=== PATIENT | male | born 1940 | race Caucasian/White ===

== ENCOUNTER 2017-09-26 11:15 | Inpatient (IN) | payer OTHER, MEDICARE ==
[2017-09-26] VITALS (7 sets, daily range): BP systolic 126–180; BP diastolic 68–105; PULSE 82–152; RESP 16–20; TEMP 97.8–98.6; O2SAT 95–99
[~2017-09-26] VITALS: Ht 180.3 cm; Wt 92.0 kg
[2017-09-26] MEDS ORDERED: LUBR0.5D2 EACH EYE (11:33)
[2017-09-26] MEDS ORDERED: ATOR40TA16 PO (11:33)
[2017-09-26] MEDS ORDERED: FREETES (11:33)
[2017-09-26] MEDS ORDERED: LANTUS2P (11:33)
[2017-09-26] MEDS ORDERED: METF1000 PO (11:36)
[2017-09-26] MEDS ORDERED: LOSA100T PO (11:36)
[2017-09-26] MEDS ORDERED: XARE20TA PO (11:36)
[2017-09-26] MEDS ORDERED: DILT30TA PO (11:36)
[2017-09-26] MEDS ORDERED: DILTIAZEM HCL 25 MG/5 ML VIAL IV PUSH ONE (11:45)
[2017-09-26] MEDS ORDERED: SODIUM CHLORIDE 0.9% FLUSH 10 ML FLUSH IVF PRN (11:45)
[2017-09-26] MEDS ORDERED: ASPIRIN 81 MG CHEW TAB PO ONE (11:45)
--- NOTE | 2017-09-26 11:52 | PD ---
HPI Chief Complaint: Chest Pain Time Seen by Provider: 11:29 Travel History International Travel<30 days: No Contact w/Intl Traveler<30days: No Traveled to known affect area: No History of Present Illness HPI 76-year-old male with a history of A. fib presents emergency department complaining of chest tightness, rapid heart rate, shortness of breath for approximately 1.5 weeks. States that his symptoms started about a week and a half ago after he was exercising. States that his heart rate was persistently elevated and he has been unable to get this down. Says that his chest tightness is the middle of his chest and does not radiate. States that it feels like a squeezing sensation. States this is mild to moderate. Says that in particular, his heart rate increases significantly with exercise therefore he has reduced his exercise in the last week. Says that he also has had cough congestion type symptoms for approximately 1 week. States compliance of medications which include diltiazem and Xarelto. States he takes 30 mg diltiazem daily. Denies history of congestive heart failure, MIs. Patient does not follow cardiology. States his primary care physician is [facility]. [facility] at [facility]. in addition, patient is complaining about testicular swelling and pain for "several weeks". States the pain is present especially with standing or jumping. States resting decreases his pain. States that he in addition he has had difficulty urinating and says that the urine has been dark. Denies hematuria, penile discharge. States he has had no sexual partners within the last month. States this has never occurred before. Patient is not . He has not followed up with his primary care physician for any of these complaints. PFSH Past Medical History Hx Anticoagulant Therapy: Yes (Xarelto) Atrial Fibrillation: Yes Cardiovascular Problems: Yes (a-fib; htn, hyperlipidemia, ) High Cholesterol: Yes Diabetes: Yes Patient Takes Glucophage: Yes GERD: Yes Hypertension: Yes Influenza Vaccination: No Past Surgical History Prostatectomy: Yes Social History Alcohol Use: No Tobacco Use: No Substance Use: No Allergies-Medications (Allergen,Severity, Reaction): Coded Allergies: No Known Allergies (Unverified , 09/26/17) Reported Meds & Prescriptions Reported Meds & Active Scripts Active Reported Diltiazem (Diltiazem HCl) 30 Mg Tab 30 Mg PO QID Xarelto (Rivaroxaban) 20 Mg Tab 20 Mg PO DAILY Metformin (Metformin HCl) 1,000 Mg Tab 1,000 Mg PO DAILY With a meal Losartan (Losartan Potassium) 100 Mg Tab 100 Mg PO DAILY Lantus Inj (Insulin Glargine) 100 Unit/Ml Inj 25 Freestyle Lite Test Strip (Glucose Blood) 1 Rakel Rakel Lubricant Opth Drops (Carboxymethylcellulose Sodium Opth Drops) 0.5% Drops 1 Drop EACH EYE QID Atorvastatin (Atorvastatin Calcium) 40 Mg Tab 40 Mg PO HS Review of Systems Except as stated in HPI: all other systems reviewed are Neg Physical Exam Narrative GENERAL: Well-nourished in no acute distress, resting comfortably in bed SKIN: Focused skin assessment warm/dry. Mild pedal edema HEAD: Atraumatic. Normocephalic. EYES: Pupils equal and round. No scleral icterus. No injection or drainage. ENT: No nasal bleeding or discharge. Mucous membranes pink and moist. NECK: Trachea midline. No JVD. No lymphadenopathy CARDIOVASCULAR: Tachycardic rate 120-140BPM, irregular. No murmur appreciated. RESPIRATORY: No accessory muscle use. Clear to auscultation. Breath sounds equal bilaterally. GASTROINTESTINAL: Abdomen soft, non-tender, nondistended. MUSCULOSKELETAL: No obvious deformities. No clubbing. No cyanosis. No edema. No tenderness palpation of the chest wall NEUROLOGICAL: Awake and alert. No obvious cranial nerve deficits. Motor grossly within normal limits. Normal speech. PSYCHIATRIC: Appropriate mood and affect; insight and judgment normal. Data Data Last Documented VS Vital Signs Date Time Temp Pulse Resp B/P (MAP) Pulse Ox O2 Delivery O2 Flow Rate FiO2 09/26/17 12:51 91 16 95 Room Air 09/26/17 11:20 98.6 Orders Orders Electrocardiogram (09/26/17 11:39) B-Type Natriuretic Peptide (09/26/17 11:39) Ckmb (Isoenzyme) Profile (09/26/17 11:39) Complete Blood Count With Diff (09/26/17 11:39) Comprehensive Metabolic Panel (09/26/17 11:39) Magnesium (Mg) (09/26/17 11:39) Prothrombin Time / Inr (Pt) (09/26/17 11:39) Act Partial Throm Time (Ptt) (09/26/17 11:39) Troponin I (09/26/17 11:39) Chest, Single Ap (09/26/17 11:39) Ecg Monitoring (09/26/17 11:39) Bilateral Bp Monitoring (09/26/17 11:39) Iv Access Insert/Monitor (09/26/17 11:39) Oximetry (09/26/17 11:39) Aspirin Chew (Aspirin Chew) (09/26/17 11:45) Sodium Chloride 0.9% Flush (Ns Flush) (09/26/17 11:45) Us Testicles W Doppler (09/26/17 ) Diltiazem Inj (Cardizem Inj) (09/26/17 11:45) Furosemide Inj (Lasix Inj) (09/26/17 13:00) Admit Order (Ed Use Only) (09/26/17 13:22) Labs Laboratory Tests Test 09/26/17 12:00 White Blood Count 6.7 TH/MM3 Red Blood Count 4.67 MIL/MM3 Hemoglobin 13.9 GM/DL Hematocrit 41.4 % Mean Corpuscular Volume 88.7 FL Mean Corpuscular Hemoglobin 29.8 PG Mean Corpuscular Hemoglobin Concent 33.5 % Red Cell Distribution Width 14.6 % Platelet Count 148 TH/MM3 Mean Platelet Volume 8.9 FL Neutrophils (%) (Auto) 77.9 % Lymphocytes (%) (Auto) 14.9 % Monocytes (%) (Auto) 6.4 % Eosinophils (%) (Auto) 0.5 % Basophils (%) (Auto) 0.3 % Neutrophils # (Auto) 5.2 TH/MM3 Lymphocytes # (Auto) 1.0 TH/MM3 Monocytes # (Auto) 0.4 TH/MM3 Eosinophils # (Auto) 0.0 TH/MM3 Basophils # (Auto) 0.0 TH/MM3 CBC Comment DIFF FINAL Differential Comment Prothrombin Time 13.7 SEC Prothromb Time International Ratio 1.4 RATIO Activated Partial Thromboplast Time 32.6 SEC Blood Urea Nitrogen 18 MG/DL Creatinine 1.19 MG/DL Random Glucose 237 MG/DL Total Protein 7.1 GM/DL Albumin 3.7 GM/DL Calcium Level 8.5 MG/DL Magnesium Level 2.1 MG/DL Alkaline Phosphatase 179 U/L Aspartate Amino Transf (AST/SGOT) 22 U/L Alanine Aminotransferase (ALT/SGPT) 22 U/L Total Bilirubin 1.1 MG/DL Sodium Level 139 MEQ/L Potassium Level 4.6 MEQ/L Chloride Level 105 MEQ/L Carbon Dioxide Level 24.6 MEQ/L Anion Gap 9 MEQ/L Estimat Glomerular Filtration Rate 59 ML/MIN Hemoglobin A1c 7.2 % Total Creatine Kinase 80 U/L Troponin I LESS THAN 0.02 NG/ML B-Type Natriuretic Peptide 229 PG/ML Thyroid Stimulating Hormone 3rd Gen 1.340 uIU/ML MDM Medical Decision Making Medical Screen Exam Complete: Yes Emergency Medical Condition: Yes Differential Diagnosis A. fib with RVR, testicular torsion, testicular hydrocele, epididymitis, STEMI, NSTEMI, congestive heart failure Narrative Course 76-year-old male with a history of A. fib presents emergency department complaining of chest tightness, rapid heart rate, shortness of breath for approximately 1.5 weeks. States that his symptoms started about a week and a half ago after he was exercising. States that his heart rate was persistently elevated and he has been unable to get this down. Says that his chest tightness is the middle of his chest and does not radiate. States that it feels like a squeezing sensation. States this is mild to moderate. Says that in particular, his heart rate increases significantly with exercise therefore he has reduced his exercise in the last week. Says that he also has had cough congestion type symptoms for approximately 1 week. States compliance of medications which include diltiazem and Xarelto. States he takes 30 mg diltiazem daily. Denies history of congestive heart failure, MIs. Patient does not follow cardiology. States his primary care physician is Dr. [facility] at [facility]. in addition, patient is complaining about testicular swelling and pain for "several weeks". States the pain is present especially with standing or jumping. States resting decreases his pain. States that he in addition he has had difficulty urinating and says that the urine has been dark. Denies hematuria, penile discharge. States he has had no sexual partners within the last month. States this has never occurred before. Patient is not . He has not followed up with his primary care physician for any of these complaints. 81 mg aspirin administered as patient did not take aspirin this morning. Heart rate is fluctuating from 118 to 145BPM. Blood pressure stable. EKG demonstrates atrial fibrillation with RVR with a rate of 124. BASA administered. Diltiazem 22 mg administered. HR stable at 93. Chest x-ray demonstrates cardiomegaly, congestion. Lasix 20mg administered for likely CHF Testicular US demonstrate moderate sized hydrocele with good blood flow. Cardiac enzymes negative. Patient will be admitted with A. fib with RVR, CHF. Rule out ACS. Patient also has a testicular hydrocele and hyperglycemia without a history of diabetes. Patient states compliance medications however, his dose of diltiazem is likely not adequate for his condition. I discussed these findings with the patient and he was reluctant to stay. Patient was convinced and I advised him to stay because of concerning symptoms of congestive heart failure. I spoke with the patient regarding the hyperglycemia as well and he says that he has never been diagnosed and did not know anything about his high blood sugar. As previously noted, pt has had trouble urinating for the last several weeks but denies complete obstruction. No history of BPH or other prostate problems. Consider Pritchard placement. Pt will be admitted to Dr. Chaidez, Dr. Peterson attending. Diagnosis Primary Impression: Atrial fibrillation with RVR Additional Impressions: CHF (congestive heart failure) Qualified Codes: I50.9 - Heart failure, unspecified Hydrocele Qualified Codes: N43.2 - Other hydrocele Hyperglycemia Admitting Information Admitting Physician Requests: Admit Condition: Stable Dora Valverde Sep 26, 2017 11:52
--- NOTE | 2017-09-26 12:02 | PD ---
Physical Exam Narrative I, Dr. Mills, have reviewed the advance practice practitioner's documentation and am in agreement, met with the patient face to face, made the diagnosis, and the medical decision making was done by me. *My assessment and Findings: Patient is a 76 year old male who comes in complaining of rapid heart rate and chest pain. Exam shows lower lobe crackles in the lungs. Heart is rapid in rate. Data Data Last Documented VS Vital Signs Date Time Temp Pulse Resp B/P (MAP) Pulse Ox O2 Delivery O2 Flow Rate FiO2 09/26/17 12:51 91 16 95 Room Air 09/26/17 11:20 98.6 Orders Orders Electrocardiogram (09/26/17 11:39) B-Type Natriuretic Peptide (09/26/17 11:39) Ckmb (Isoenzyme) Profile (09/26/17 11:39) Complete Blood Count With Diff (09/26/17 11:39) Comprehensive Metabolic Panel (09/26/17 11:39) Magnesium (Mg) (09/26/17 11:39) Prothrombin Time / Inr (Pt) (09/26/17 11:39) Act Partial Throm Time (Ptt) (09/26/17 11:39) Troponin I (09/26/17 11:39) Chest, Single Ap (09/26/17 11:39) Ecg Monitoring (09/26/17 11:39) Bilateral Bp Monitoring (09/26/17 11:39) Iv Access Insert/Monitor (09/26/17 11:39) Oximetry (09/26/17 11:39) Aspirin Chew (Aspirin Chew) (09/26/17 11:45) Sodium Chloride 0.9% Flush (Ns Flush) (09/26/17 11:45) Us Testicles W Doppler (09/26/17 ) Diltiazem Inj (Cardizem Inj) (09/26/17 11:45) Furosemide Inj (Lasix Inj) (09/26/17 13:00) Admit Order (Ed Use Only) (09/26/17 13:22) Labs Laboratory Tests Test 09/26/17 12:00 White Blood Count 6.7 TH/MM3 Red Blood Count 4.67 MIL/MM3 Hemoglobin 13.9 GM/DL Hematocrit 41.4 % Mean Corpuscular Volume 88.7 FL Mean Corpuscular Hemoglobin 29.8 PG Mean Corpuscular Hemoglobin Concent 33.5 % Red Cell Distribution Width 14.6 % Platelet Count 148 TH/MM3 Mean Platelet Volume 8.9 FL Neutrophils (%) (Auto) 77.9 % Lymphocytes (%) (Auto) 14.9 % Monocytes (%) (Auto) 6.4 % Eosinophils (%) (Auto) 0.5 % Basophils (%) (Auto) 0.3 % Neutrophils # (Auto) 5.2 TH/MM3 Lymphocytes # (Auto) 1.0 TH/MM3 Monocytes # (Auto) 0.4 TH/MM3 Eosinophils # (Auto) 0.0 TH/MM3 Basophils # (Auto) 0.0 TH/MM3 CBC Comment DIFF FINAL Differential Comment Prothrombin Time 13.7 SEC Prothromb Time International Ratio 1.4 RATIO Activated Partial Thromboplast Time 32.6 SEC Blood Urea Nitrogen 18 MG/DL Creatinine 1.19 MG/DL Random Glucose 237 MG/DL Total Protein 7.1 GM/DL Albumin 3.7 GM/DL Calcium Level 8.5 MG/DL Magnesium Level 2.1 MG/DL Alkaline Phosphatase 179 U/L Aspartate Amino Transf (AST/SGOT) 22 U/L Alanine Aminotransferase (ALT/SGPT) 22 U/L Total Bilirubin 1.1 MG/DL Sodium Level 139 MEQ/L Potassium Level 4.6 MEQ/L Chloride Level 105 MEQ/L Carbon Dioxide Level 24.6 MEQ/L Anion Gap 9 MEQ/L Estimat Glomerular Filtration Rate 59 ML/MIN Hemoglobin A1c 7.2 % Total Creatine Kinase 80 U/L Troponin I LESS THAN 0.02 NG/ML B-Type Natriuretic Peptide 229 PG/ML Thyroid Stimulating Hormone 3rd Gen 1.340 uIU/ML MDM Supervised Visit with [facility]: Yes Narrative Course Patient connected to the youth nutritional monitor. Given a dose of Cardizem with control of his heart rate. Given a dose of lasix. Will be admitted for further management. Diagnosis Primary Impression: Atrial fibrillation with RVR Admitting Information Admitting Physician Requests: Admit Scripts Diltiazem CD 24 HR (Diltiazem CD 24 HR) 240 Mg Caper 240 MG PO DAILY, #30 CAP 1 Refill Prov: Melody Og MD R1 09/29/17 Levofloxacin (Levaquin) 500 Mg Tablet 500 MG PO DAILY, #4 TAB 0 Refills Prov: Melody Og MD R1 09/29/17 Condition: Stable Kiah Mills MD Sep 26, 2017 12:02
[2017-09-26 12:17] LABS: AUTOMATED NEUTROPHIL # 5.2 TH/MM3 (1.8-7.7); BASOPHIL % 0.3 % (0.0-2.0); EOSINOPHIL % 0.5 % (0.0-4.0); HEMATOCRIT 41.4 % (39.0-51.0); HEMOGLOBIN 13.9 GM/DL (13.0-17.0); LYMPH % 14.9 % (9.0-44.0); MEAN CELL VOLUME 88.7 FL (80.0-100.0); MEAN CORPUSCULAR HEMOGLOBIN 29.8 PG (27.0-34.0); MEAN CORPUSCULAR HGB CONC 33.5 % (32.0-36.0); MEAN PLATELET VOLUME 8.9 FL (7.0-11.0); MONO % 6.4 % (0.0-8.0); MONOCYTE # 0.4 TH/MM3 (0-0.9); NEUT % 77.9 % (16.0-70.0); PLATELET COUNT 148 TH/MM3 (150-450); RED BLOOD COUNT 4.67 MIL/MM3 (4.50-5.90); RED CELL DISTRIBUTION WIDTH 14.6 % (11.6-17.2); WHITE BLOOD COUNT 6.7 TH/MM3 (4.0-11.0)
[2017-09-26 12:21] LABS: INTERNATIONAL NORMALIZED RATIO 1.4 RATIO; PROTHROMBIN TIME - PATIENT 13.7 SEC (9.8-11.6)
[2017-09-26 12:39] LABS: ALBUMIN 3.7 GM/DL (3.4-5.0); ALT (GPT) 22 U/L (12-78); AST (GOT) 22 U/L (15-37); BICARBONATE 24.6 MEQ/L (21.0-32.0); BLOOD UREA NITROGEN 18 MG/DL (7-18); CALCIUM 8.5 MG/DL (8.5-10.1); CHLORIDE 105 MEQ/L (98-107); CREATININE 1.19 MG/DL (0.60-1.30); GLOMERULAR FILTRATION RATE 59 ML/MIN (>89); GLUCOSE,RANDOM 237 MG/DL (74-106); MAGNESIUM 2.1 MG/DL (1.5-2.5); SODIUM (NA) 139 MEQ/L (136-145)
--- NOTE | 2017-09-26 12:40 | RADRPT ---
EXAM DATE/TIME: 09/26/2017 12:04 [facility] COMPARISON: No previous studies available for comparison. INDICATIONS : Swelling. MEDICAL HISTORY : Afib. Hypertension. Diabetic. SURGICAL HISTORY : Prostatectomy. ENCOUNTER: Initial ACUITY: 1 week PAIN SCORE: 2/10 LOCATION: Bilateral testicle. MEASUREMENTS: RIGHT TESTICLE: 4.7 x 2.9 x 2.8cm LEFT TESTICLE: 4.1 x 2.8 x2 .2cm FINDINGS: RIGHT TESTICLE: Homogeneous echotexture without intra or extratesticular mass. Blood flow is symmetric and within no rmal limits. There is a moderate hydrocele. No varicocele is seen. Epididymis is within normal limi ts. LEFT TESTICLE: Homogeneous echotexture without intra or extratesticular mass. Blood flow is symmetric and within no rmal limits. No hydrocele or varicocele. Epididymis is within normal limits. SCROTUM: Within normal limits. CONCLUSION: Moderate right hydrocele. The testicles appear normal. Jaime Hugo MD on September 26, 2017 at 12:36 Board Certified Radiologist. This report was verified electronically.
[2017-09-26 12:43] LABS: ALKALINE PHOSPHATASE 179 U/L (45-117); TOTAL BILIRUBIN ADULT 1.1 MG/DL (0.2-1.0); TOTAL PROTEIN 7.1 GM/DL (6.4-8.2); TROPONIN I LESS THAN 0.02 NG/ML (0.02-0.05)
[2017-09-26] MEDS ORDERED: FUROSEMIDE 20 MG/2 ML VIAL IV PUSH ONE (13:00)
--- NOTE | 2017-09-26 13:29 | RADRPT ---
EXAM DATE/TIME: 09/26/2017 12:28 [facility] COMPARISON: No previous studies available for comparison. INDICATIONS : Short of breath, chest pain and rapid heart rate. MEDICAL HISTORY : Afib. Hypertension. Diabetic. SURGICAL HISTORY : Prostatectomy. ENCOUNTER: Initial ACUITY: 1 day PAIN SCORE: 8/10 LOCATION: Left chest FINDINGS: A single AP portable erect view of the chest was obtained and demonstrates abnormal opacity at the ri ght lung base with blunting of the costophrenic angle. The left lung is clear. The heart size is mild ly prominent there is hazy opacity at the right lung base and perihilar region. The bony thorax is in tact. There are multiple overlying electrocardiogram leads. CONCLUSION: Abnormal opacity in the right lung base with blunting of the costophrenic angle most consistent with a moderate effusion. There is hazy opacity at the right lung base which may be compre ssive or could represent pneumonia. Timo Munguia MD on September 26, 2017 at 13:25 Board Certified Radiologist. This report was verified electronically.
--- NOTE | 2017-09-26 15:03 | HHI.HP ---
[facility] Service Family Medicine Primary Care Physician [facility] Admission Diagnosis AFib with RVR, CHF, hyperglycemia Diagnoses: International Travel<30 Days: No Contact w/Intl Traveler<30days: No Known Affected Area: No History of Present Illness 76 yr old M w/ PMHx of Afib, DM, and hx of prostate cancer presents with chest pain and right scrotal swelling. Patient states that he has had 1 1/2 week hx of SOB on exertion and fast heart rate. He has been exercising by running up a hill near his home. About half way up the hill, patient develops SOB and gets dizzy. He reports that even walking to the mailbox, patient develops SOB. This morning around 7am, he reports palpitations and left-sided, constant, 7/10, chest tightness lasting a couple of hours. His brother decided to bring him to the ED. Patient reports feeling better after receiving IV Diltazem. He reports that he was diagnosed with Afib about 1 year ago. He has been on Diltazem 30 mg PO QID and Xarelto. He reports being compliant with his medications. He does not follow with a cardiologists. His PCP is Dr. Carter from the [place]. Patient also complains of right testicular swelling that started about 2 weeks ago. He noticed his swollen, enlarged, right testicle when he was taking a shower. He also complains of problems with urination. It is hard for him to start a stream and reports that his stream is slow. He has no morning erections. He endorses mild urinary retention and foul-smelling urine. He denies trauma, fevers, and hx of STDs. He is currently not sexually active. He reports hx of prostate cancer and prostate surgery in 1992. (Melody Og MD R1) Review of Systems Constitutional: DENIES: Fever, Weight loss, Night Sweats Ears, nose, mouth, throat: COMPLAINS OF: Running Nose, DENIES: Hearing loss, Throat pain Respiratory: COMPLAINS OF: Shortness of breath, DENIES: Cough, Sputum production Cardiovascular: COMPLAINS OF: Chest pain, Palpitations, Dyspnea on Exertion, DENIES: Syncope Gastrointestinal: COMPLAINS OF: Abdominal pain, DENIES: Diarrhea, Nausea, Vomiting Genitourinary: COMPLAINS OF: Testicular Pain, Testicular Swelling, DENIES: Hematuria Musculoskeletal: COMPLAINS OF: Joint pain (arithritis) Neurologic: DENIES: Headache (Melody Og MD R1) Past Family Social History Past Medical History Afib on xarelto, 1.5 year ago Prostate cancer DMT2 Left eye retinal issue Past Surgical History Prostate resection 1992, no radiation, no chemotherapy (Melody Og MD R1) Allergies: Coded Allergies: No Known Allergies (Unverified , 09/26/17) Family History DM Mother 92, old age Social History Live alone in [facility], retired quit smoking 30 years ago, smoked for 5 years 1.5ppd Drinks occasionally Denies illicit drug use (Melody Og MD R1) Physical Exam Vital Signs Vital Signs Date Time Temp Pulse Resp B/P (MAP) Pulse Ox O2 Delivery O2 Flow Rate FiO2 09/26/17 12:51 91 16 95 Room Air 09/26/17 12:21 93 17 143/98 (113) 95 Room Air 09/26/17 11:49 154/104 (121) 09/26/17 11:49 95 Room Air 09/26/17 11:20 98.6 152 20 180/105 (130) 96 Room Air Physical Exam GENERAL: pleasant, well-nourished elderly M, sitting up in bed, in NAD SKIN: No rashes, ecchymoses or lesions. Cool and dry. HEAD: Atraumatic. Normocephalic. EYES: Pupils equal round and reactive.. No scleral icterus. No injection or drainage. ENT: Nose without bleeding, purulent drainage or septal hematoma. Throat without erythema, tonsillar hypertrophy or exudate. Uvula midline. Airway patent. NECK: Trachea midline. No JVD or lymphadenopathy. Supple, nontender, no meningeal signs. CARDIOVASCULAR: Irregular rate and rhythm, no m/r/g RESPIRATORY: Clear to auscultation. Breath sounds equal bilaterally. No wheezes , rales, or rhonchi. GASTROINTESTINAL: Abdomen soft, non-tender, nondistended. No hepato-splenomegaly , or palpable masses. No guarding. MUSCULOSKELETAL: Extremities without clubbing, cyanosis, or edema. No joint tenderness, effusion, or edema noted. No calf tenderness. Negative Homans sign bilaterally. : moderately swollen right testicle,erythematous, no inguinal lymph nodes palpated NEUROLOGICAL: Awake, alert, oriented x3 Laboratory Laboratory Tests Test 09/26/17 12:00 White Blood Count 6.7 Red Blood Count 4.67 Hemoglobin 13.9 Hematocrit 41.4 Mean Corpuscular Volume 88.7 Mean Corpuscular Hemoglobin 29.8 Mean Corpuscular Hemoglobin Concent 33.5 Red Cell Distribution Width 14.6 Platelet Count 148 Mean Platelet Volume 8.9 Neutrophils (%) (Auto) 77.9 Lymphocytes (%) (Auto) 14.9 Monocytes (%) (Auto) 6.4 Eosinophils (%) (Auto) 0.5 Basophils (%) (Auto) 0.3 Neutrophils # (Auto) 5.2 Lymphocytes # (Auto) 1.0 Monocytes # (Auto) 0.4 Eosinophils # (Auto) 0.0 Basophils # (Auto) 0.0 CBC Comment DIFF FINAL Differential Comment Prothrombin Time 13.7 Prothromb Time International Ratio 1.4 Activated Partial Thromboplast Time 32.6 Blood Urea Nitrogen 18 Creatinine 1.19 Random Glucose 237 Total Protein 7.1 Albumin 3.7 Calcium Level 8.5 Magnesium Level 2.1 Alkaline Phosphatase 179 Aspartate Amino Transf (AST/SGOT) 22 Alanine Aminotransferase (ALT/SGPT) 22 Total Bilirubin 1.1 Sodium Level 139 Potassium Level 4.6 Chloride Level 105 Carbon Dioxide Level 24.6 Anion Gap 9 Estimat Glomerular Filtration Rate 59 Total Creatine Kinase 80 Troponin I LESS THAN 0.02 (Melody Og MD R1) Result Diagram: 09/26/17 1200 09/26/17 1200 Caprini VTE Risk Assessment Caprini VTE Risk Assessment: Mod/High Risk (score >= 2) Caprini Risk Assessment Model Point Value = 1 Point Value = 2 Point Value = 3 Point Value = 5 Age 41-60 Minor surgery BMI > 25 kg/m2 Swollen legs Varicose veins or History of unexplained or recurrent spontaneous Oral contraceptives or hormone replacement Sepsis (< 1 month) Serious lung disease, including pneumonia (< 1 month) Abnormal pulmonary function Acute myocardial infarction Congestive heart failure (< 1 month) History of inflammatory bowel disease Medical patient at bed rest Age 61-74 Arthroscopic surgery Major open surgery (> 45 min) Laparoscopic surgery (> 45 min) Malignancy Confined to bed (> 72 hours) Immobilizing plaster cast Central venous access Age >= 75 History of VTE Family history of VTE Factor V Leiden Prothrombin [id number] Lupus anticoagulant Anticardiolipin antibodies Elevated serum homocysteine Heparin-induced thrombocytopenia Other congenital or acquired thrombophilia Stroke (< 1 month) Elective arthroplasty Hip, pelvis, or leg fracture Acute spinal cord injury (< 1 month) Prophylaxis Regimen Total Risk Factor Score Risk Level Prophylaxis Regimen 0-1 Low Early ambulation 2 Moderate Order ONE of the following: *Sequential Compression Device (SCD) *Heparin 5000 units SQ BID 3-4 Higher Order ONE of the following medications: *Heparin 5000 units SQ TID *Enoxaparin/Lovenox 40 mg SQ daily (WT < 150 kg, CrCl > 30 mL/min) *Enoxaparin/Lovenox 30 mg SQ daily (WT < 150 kg, CrCl > 10-29 mL/min) *Enoxaparin/Lovenox 30 mg SQ BID (WT < 150 kg, CrCl > 30 mL/min) AND/OR *Sequential Compression Device (SCD) 5 or more Highest Order ONE of the following medications: *Heparin 5000 units SQ TID (Preferred with Epidurals) *Enoxaparin/Lovenox 40 mg SQ daily (WT < 150 kg, CrCl > 30 mL/min) *Enoxaparin/Lovenox 30 mg SQ daily (WT < 150 kg, CrCl > 10-29 mL/min) *Enoxaparin/Lovenox 30 mg SQ BID (WT < 150 kg, CrCl > 30 mL/min) AND *Sequential Compression Device (SCD) (Melody Og MD R1) Assessment and Plan Assessment and Plan 76 yr old with Afib, DM, HTN, and hx of prostate cancer, admitted for afib w/ RVR and right-sided hydrocele. Code Status Full code Discussed Condition With Dr. Chaidez (Melody Og MD R1) Attending Attestation THIS CASE WAS DISCUSSED WITH THE RESIDENT PHYSICIANS. I HAVE REVIEWED THE RECORD AND AGREE WITH THE ABOVE NOTE AND PLAN OF CARE WAS DISCUSSED. I HAVE AUTHORIZED THE ORDER FOR ADMISSION TO AN IN-PATIENT STATUS. (Otto Peterson MD) Problem List: (1) Atrial fibrillation with RVR ICD Codes: I48.91 - Unspecified atrial fibrillation Status: Acute Plan: Patient diagnosed with Afib 1 year ago on Xarelto and Diltiazem EKG revealed Afib with RVR, HR 124 Rate- controlled to 90s on IV diltiazem 22mg IV push Increase Diltiazem to 60mg PO qid Placed on cardiac telemetry and monitoring Initial troponin less than 0.02 Trend troponin and EKG TSH pending Echo 2D w/ doppler pending Placed on Lovenox 90mg SQ q12hr (2) Hydrocele ICD Codes: N43.3 - Hydrocele, unspecified Status: Acute Plan: Hx of prostate cancer, resection in 1992, no hx of radiation of chemotherapy Scrotum US demonstrates moderate right hydrocele CT abd/ pelv w/ IV contrast ordered GC and chlamydia PCR pending (3) CHF (congestive heart failure) ICD Codes: I50.9 - Heart failure, unspecified Status: Acute Plan: BNP elevated at 229 Echo 2D with doppler pending (4) HTN (hypertension) ICD Codes: I10 - Essential (primary) hypertension Plan: Diltiazem 60mg PO QID Losartan 100mg PO daily clonidine 0.1mg PO q8h PRN SBP >180, DBP >110 (5) Elevated alkaline phosphatase level ICD Codes: R74.8 - Abnormal levels of other serum enzymes Plan: Alk phos elevated at 179 and total bilirubin elevated at 1.1 due to possible biliary obstruction Lipase pending CT abd/pelvis pending (6) Diabetes ICD Codes: E11.9 - Type 2 diabetes mellitus without complications Plan: Held home meds Alc pending Low dose Novolog SS (7) Nutrition, metabolism, and development symptoms ICD Codes: R63.8 - Other symptoms and signs concerning food and fluid intake Plan: Diet: Heart Healthy Fluids: not indicated at this time Electrolytes: monitor and replace as needed vitals q4h, monitor I &Os, on telemetry (Melody Og MD R1) Problem Qualifiers (1) Hydrocele: Qualified Codes: N43.2 - Other hydrocele (2) CHF (congestive heart failure): Qualified Codes: I50.9 - Heart failure, unspecified Melody Og MD R1 Sep 26, 2017 15:03 Otto Peterson MD Sep 26, 2017 21:12
[2017-09-26] MEDS ORDERED: SODIUM CHLORIDE 0.9% FLUSH 10 ML FLUSH IV FLUSH PRN (15:45)
[2017-09-26] MEDS ORDERED: ACETAMINOPHEN 325 MG TAB PO PRN (15:45)
[2017-09-26] MEDS ORDERED: NALOXONE HCL 0.4 MG/ML AMP IV PUSH PRN (15:45)
[2017-09-26] MEDS ORDERED: ONDANSETRON HCL 4 MG/2 ML VIAL IVP PRN (15:45)
[2017-09-26] MEDS ORDERED: DEXTROSE 50% IN WATER 50 ML VIAL(D50) IV PUSH PRN (15:45)
[2017-09-26] MEDS ORDERED: GLUCAGON 1 MG/ML VIAL OTHER PRN (15:45)
[2017-09-26] MEDS ORDERED: cloNIDine HCL 0.1 MG TAB PO PRN (16:00)
[2017-09-26 16:43] LABS: BILIRUBIN, URINE NEG (NEG); BLOOD, URINE NEG (NEG); GLUCOSE,URINE NEG (NEG); KETONE, URINE NEG (NEG); NITRITE,URINE NEG (NEG); PH, URINE 6.5 (5.0-8.5); URINE COLOR LIGHT-YELLOW (YELLW/STRAW); URINE LEUKOCYTE ESTERASE NEG (NEG)
[2017-09-26] MEDS: CARBOXYMETHYLCELL SOD 0.5% OPTH SOLN 15 ML BTL EACH EYE SCH ×2 (18:02→22:23)
[2017-09-26] MEDS: DILTIAZEM HCL 60 MG TAB PO SCH ×2 (18:03→22:22)
[2017-09-26] MEDS: LOSARTAN 50 MG TAB PO SCH (18:03)
[2017-09-26] MEDS: ENOXAPARIN SODIUM 100 MG/ML SYRINGE SQ SCH (18:03)
[2017-09-26] MEDS: INSULIN ASPART SUPPLEMENTAL SCALE SQ SCH ×2 (18:07→22:24)
[2017-09-26 18:21] LABS: HEMOGLOBIN A1C 7.2 % (4.3-6.0)
[2017-09-26 20:32] LABS: TROPONIN I LESS THAN 0.02 NG/ML (0.02-0.05)
[2017-09-26] MEDS: DOCUSATE SODIUM 50 MG/SENNA 8.6 MG TAB PO SCH (21:00)
[2017-09-26] MEDS ORDERED: IOHEXOL 350 MG/ML 10 ML VIAL (for RAD DIAG) IVCONTRAST ONE (21:12)
--- NOTE | 2017-09-26 21:12 | HHI.HP ---
[facility] Service Family Medicine Primary Care Physician [facility] Admission Diagnosis AFib with RVR, CHF, hyperglycemia Diagnoses: (1) Atrial fibrillation with RVR (2) Hydrocele (3) CHF (congestive heart failure) (4) HTN (hypertension) (5) Elevated alkaline phosphatase level (6) Diabetes (7) Nutrition, metabolism, and development symptoms International Travel<30 Days: No Contact w/Intl Traveler<30days: No Known Affected Area: No History of Present Illness 76 yo M presenting to the ED with chest pain and palpitations. He has a history of A.fib and is on diltiazem for rate control and xarelto - however over the last 10 days, he has had progressive shortness of breath and sensation of his heart racing. This is associated with some chest discomfort and dizziness with minimal exertion. In the ED, he was found to be in A.fib with RVR and was given a dose of diltiazem IV and his chest discomfort and palpitations have resolved. He also complains of right scrotal swelling and testicular discomfort for 2 weeks. He states that the swelling was progressive and spontaneous, denies trauma or injury. Denies hematuria or dysuria. Denies lower abdominal pain. He endorses mild urinary retention and difficulty starting a stream. He does have a h/o prostate cancer s/p prostatectomy without radiation or chemotherapy in 1992 Past Family Social History Past Medical History Afib on xarelto, 1.5 year ago Prostate cancer DMT2 Left eye retinal issue Past Surgical History Prostate resection 1992, no radiation, no chemotherapy Allergies: Coded Allergies: No Known Allergies (Unverified , 09/26/17) Family History DM Mother 92, old age Social History Live alone in [facility], retired quit smoking 30 years ago, smoked for 5 years 1.5ppd Drinks occasionally Denies illicit drug use Physical Exam Vital Signs Vital Signs Date Time Temp Pulse Resp B/P (MAP) Pulse Ox O2 Delivery O2 Flow Rate FiO2 09/26/17 17:15 98.0 101 18 126/68 (87) 99 09/26/17 15:44 93 16 147/97 (114) 98 Room Air 09/26/17 12:51 91 16 95 Room Air 09/26/17 12:21 93 17 143/98 (113) 95 Room Air 09/26/17 11:49 154/104 (121) 09/26/17 11:49 95 Room Air 09/26/17 11:20 98.6 152 20 180/105 (130) 96 Room Air Physical Exam GENERAL: pleasant, well-nourished elderly M, sitting up in bed, in NAD SKIN: No rashes, ecchymoses or lesions. Cool and dry. HEAD: Atraumatic. Normocephalic. EYES: Pupils equal round and reactive.. No scleral icterus. No injection or drainage. ENT: Nose without bleeding, purulent drainage or septal hematoma. Throat without erythema, tonsillar hypertrophy or exudate. Uvula midline. Airway patent. NECK: Trachea midline. No JVD or lymphadenopathy. Supple, nontender, no meningeal signs. CARDIOVASCULAR: Irregular rate and rhythm, no m/r/g RESPIRATORY: Clear to auscultation. Breath sounds equal bilaterally. No wheezes , rales, or rhonchi. GASTROINTESTINAL: Abdomen soft, non-tender, nondistended. No hepato-splenomegaly , or palpable masses. No guarding. MUSCULOSKELETAL: Extremities without clubbing, cyanosis, or edema. No joint tenderness, effusion, or edema noted. No calf tenderness. Negative Homans sign bilaterally. : moderately swollen right testicle,erythematous, no inguinal lymph nodes palpated NEUROLOGICAL: Awake, alert, oriented x3 Laboratory Laboratory Tests Test 09/26/17 12:00 09/26/17 16:00 09/26/17 19:05 White Blood Count 6.7 Red Blood Count 4.67 Hemoglobin 13.9 Hematocrit 41.4 Mean Corpuscular Volume 88.7 Mean Corpuscular Hemoglobin 29.8 Mean Corpuscular Hemoglobin Concent 33.5 Red Cell Distribution Width 14.6 Platelet Count 148 Mean Platelet Volume 8.9 Neutrophils (%) (Auto) 77.9 Lymphocytes (%) (Auto) 14.9 Monocytes (%) (Auto) 6.4 Eosinophils (%) (Auto) 0.5 Basophils (%) (Auto) 0.3 Neutrophils # (Auto) 5.2 Lymphocytes # (Auto) 1.0 Monocytes # (Auto) 0.4 Eosinophils # (Auto) 0.0 Basophils # (Auto) 0.0 CBC Comment DIFF FINAL Differential Comment Prothrombin Time 13.7 Prothromb Time International Ratio 1.4 Activated Partial Thromboplast Time 32.6 Blood Urea Nitrogen 18 Creatinine 1.19 Random Glucose 237 Total Protein 7.1 Albumin 3.7 Calcium Level 8.5 Magnesium Level 2.1 Alkaline Phosphatase 179 Aspartate Amino Transf (AST/SGOT) 22 Alanine Aminotransferase (ALT/SGPT) 22 Total Bilirubin 1.1 Sodium Level 139 Potassium Level 4.6 Chloride Level 105 Carbon Dioxide Level 24.6 Anion Gap 9 Estimat Glomerular Filtration Rate 59 Hemoglobin A1c 7.2 Total Creatine Kinase 80 73 Troponin I LESS THAN 0.02 LESS THAN 0.02 B-Type Natriuretic Peptide 229 Thyroid Stimulating Hormone 3rd Gen 1.340 Urine Color LIGHT-YELLOW Urine Turbidity CLEAR Urine pH 6.5 Urine Specific Stout 1.005 Urine Protein NEG Urine Glucose (UA) NEG Urine Ketones NEG Urine Occult Blood NEG Urine Nitrite NEG Urine Bilirubin NEG Urine Urobilinogen LESS THAN 2.0 Urine Leukocyte Esterase NEG Urine RBC LESS THAN 1 Microscopic Urinalysis Comment CULT NOT INDICATED Result Diagram: 09/26/17 1200 09/26/17 1200 Imaging Last 24 hours Impressions Chest X-Ray 09/26/17 1139 Signed Impressions: Service Date/Time: Tuesday, September 26, 2017 12:28 - CONCLUSION: Abnormal opacity in the right lung base with blunting of the costophrenic angle most consistent with a moderate effusion. There is hazy opacity at the right lung base which may be compressive or could represent pneumonia. Timo Munguia MD Scrotum Ultrasound 09/26/17 0000 Signed Impressions: Service Date/Time: Tuesday, September 26, 2017 12:04 - CONCLUSION: Moderate right hydrocele. The testicles appear normal. MD Glen Escobar VTE Risk Assessment Caprini VTE Risk Assessment: Mod/High Risk (score >= 2) Caprini Risk Assessment Model Point Value = 1 Point Value = 2 Point Value = 3 Point Value = 5 Age 41-60 Minor surgery BMI > 25 kg/m2 Swollen legs Varicose veins or History of unexplained or recurrent spontaneous Oral contraceptives or hormone replacement Sepsis (< 1 month) Serious lung disease, including pneumonia (< 1 month) Abnormal pulmonary function Acute myocardial infarction Congestive heart failure (< 1 month) History of inflammatory bowel disease Medical patient at bed rest Age 61-74 Arthroscopic surgery Major open surgery (> 45 min) Laparoscopic surgery (> 45 min) Malignancy Confined to bed (> 72 hours) Immobilizing plaster cast Central venous access Age >= 75 History of VTE Family history of VTE Factor V Leiden Prothrombin [id number] Lupus anticoagulant Anticardiolipin antibodies Elevated serum homocysteine Heparin-induced thrombocytopenia Other congenital or acquired thrombophilia Stroke (< 1 month) Elective arthroplasty Hip, pelvis, or leg fracture Acute spinal cord injury (< 1 month) Prophylaxis Regimen Total Risk Factor Score Risk Level Prophylaxis Regimen 0-1 Low Early ambulation 2 Moderate Order ONE of the following: *Sequential Compression Device (SCD) *Heparin 5000 units SQ BID 3-4 Higher Order ONE of the following medications: *Heparin 5000 units SQ TID *Enoxaparin/Lovenox 40 mg SQ daily (WT < 150 kg, CrCl > 30 mL/min) *Enoxaparin/Lovenox 30 mg SQ daily (WT < 150 kg, CrCl > 10-29 mL/min) *Enoxaparin/Lovenox 30 mg SQ BID (WT < 150 kg, CrCl > 30 mL/min) AND/OR *Sequential Compression Device (SCD) 5 or more Highest Order ONE of the following medications: *Heparin 5000 units SQ TID (Preferred with Epidurals) *Enoxaparin/Lovenox 40 mg SQ daily (WT < 150 kg, CrCl > 30 mL/min) *Enoxaparin/Lovenox 30 mg SQ daily (WT < 150 kg, CrCl > 10-29 mL/min) *Enoxaparin/Lovenox 30 mg SQ BID (WT < 150 kg, CrCl > 30 mL/min) AND *Sequential Compression Device (SCD) Assessment and Plan Assessment and Plan 76 yr old with Afib, DM, HTN, and hx of prostate cancer, admitted for afib w/ RVR and right-sided hydrocele. Problem List: (1) Atrial fibrillation with RVR ICD Codes: I48.91 - Unspecified atrial fibrillation Status: Acute Plan: Patient diagnosed with Afib 1 year ago on Xarelto and Diltiazem EKG revealed Afib with RVR, HR 124 Rate- controlled to 90s on IV diltiazem 22mg IV push Increase Diltiazem to 60mg PO qid Placed on cardiac telemetry and monitoring Initial troponin less than 0.02 Trend troponin and EKG TSH pending Echo 2D w/ doppler pending Placed on Lovenox 90mg SQ q12hr (2) Hydrocele ICD Codes: N43.3 - Hydrocele, unspecified Status: Acute Plan: Hx of prostate cancer, resection in 1992, no hx of radiation of chemotherapy Scrotum US demonstrates moderate right hydrocele CT abd/ pelv w/ IV contrast ordered GC and chlamydia PCR pending (3) CHF (congestive heart failure) ICD Codes: I50.9 - Heart failure, unspecified Status: Acute Plan: BNP elevated at 229 Echo 2D with doppler pending (4) HTN (hypertension) ICD Codes: I10 - Essential (primary) hypertension Plan: Diltiazem 60mg PO QID Losartan 100mg PO daily clonidine 0.1mg PO q8h PRN SBP >180, DBP >110 (5) Elevated alkaline phosphatase level ICD Codes: R74.8 - Abnormal levels of other serum enzymes Plan: Alk phos elevated at 179 and total bilirubin elevated at 1.1 due to possible biliary obstruction Lipase pending CT abd/pelvis pending (6) Diabetes ICD Codes: E11.9 - Type 2 diabetes mellitus without complications Plan: Held home meds Alc pending Low dose Novolog SS (7) Nutrition, metabolism, and development symptoms ICD Codes: R63.8 - Other symptoms and signs concerning food and fluid intake Plan: Diet: Heart Healthy Fluids: not indicated at this time Electrolytes: monitor and replace as needed vitals q4h, monitor I &Os, on telemetry Physician Certification 2 Midnight Certification Type: Admission for Inpatient Services Order for Inpatient Services The services are ordered in accordance with Medicare regulations or non- Medicare payer requirements, as applicable. In the case of services not specified as inpatient-only, they are appropriately provided as inpatient services in accordance with the 2-midnight benchmark. Estimated LOS (days): 2 2 days is the estimated time the patient will need to remain in the hospital, assuming treatment plan goals are met and no additional complications. Post-Hospital Plan: Home Problem Qualifiers (1) Hydrocele: Qualified Codes: N43.2 - Other hydrocele (2) CHF (congestive heart failure): Qualified Codes: I50.9 - Heart failure, unspecified Otto Peterson MD Sep 26, 2017 21:12
[2017-09-26] MEDS: ATORVASTATIN 40 MG TAB PO SCH (22:21)
[2017-09-26] MEDS: SODIUM CHLORIDE 0.9% FLUSH 10 ML FLUSH IV FLUSH SCH (22:22)
--- NOTE | 2017-09-26 23:43 | RADRPT ---
EXAM DATE/TIME: 09/26/2017 21:08 [place] COMPARISON: No previous studies available for comparison. INDICATIONS : Hydrocele. History of prostate cancer. IV CONTRAST: 98 cc Omnipaque 350 (iohexol) IV ORAL CONTRAST: No oral contrast ingested. RADIATION DOSE: 14.25 CTDIvol (mGy) MEDICAL HISTORY : Cardiovascular disease. Hypertension. Diabetes mellitus type 2.Prostate cancer SURGICAL HISTORY : None. ENCOUNTER: Initial ACUITY: 1 day PAIN SCALE: 5/10 LOCATION: Bilateral abdomen TECHNIQUE: Volumetric scanning of the abdomen and pelvis was performed. Using automated exposure control and ad justment of the mA and/or kV according to patient size, radiation dose was kept as low as reasonably achievable to obtain optimal diagnostic quality images. DICOM format image data is available electro nically for review and comparison. FINDINGS: Moderate right effusion and small left effusion. Mild fatty liver. Spleen, adrenals and pancreas unre markable. Tiny nonobstructing calculus upper and lower pole left kidney. Right kidney unremarkable. N o calcified gallstones. Mild ascites. Multiple surgical clips in the pelvis. Postoperative prostatectomy. Mild anasarca. CONCLUSION: 1. Moderate right effusion and small left effusion. Minimal ascites. Mild anasarca. 2. Postoperative prostatectomy with numerous surgical clips in the pelvis. Quinton Stevens MD on September 26, 2017 at 23:37 Board Certified Radiologist. This report was verified electronically.
[2017-09-27] VITALS (9 sets, daily range): BP systolic 121–139; BP diastolic 72–95; PULSE 72–106; RESP 16–21; TEMP 97.8–99.7; O2SAT 94–97
[2017-09-27 00:49] LABS: TROPONIN I LESS THAN 0.02 NG/ML (0.02-0.05)
[2017-09-27] MEDS: INSULIN ASPART SUPPLEMENTAL SCALE SQ SCH ×4 (07:46→21:19)
[2017-09-27] MEDS: CARBOXYMETHYLCELL SOD 0.5% OPTH SOLN 15 ML BTL EACH EYE SCH ×4 (07:55→20:48)
[2017-09-27] MEDS: ENOXAPARIN SODIUM 100 MG/ML SYRINGE SQ SCH ×2 (07:55→20:48)
[2017-09-27] MEDS: LOSARTAN 50 MG TAB PO SCH (07:55)
[2017-09-27] MEDS: DOCUSATE SODIUM 50 MG/SENNA 8.6 MG TAB PO SCH ×2 (07:55→20:48)
[2017-09-27] MEDS: SODIUM CHLORIDE 0.9% FLUSH 10 ML FLUSH IV FLUSH SCH ×2 (07:55→20:14)
[2017-09-27] MEDS: DILTIAZEM HCL 60 MG TAB PO SCH ×4 (07:55→20:48)
[2017-09-27 08:30] LABS: ALBUMIN 3.2 GM/DL (3.4-5.0); ALKALINE PHOSPHATASE 152 U/L (45-117); ALT (GPT) 19 U/L (12-78); AST (GOT) 18 U/L (15-37); BICARBONATE 27.3 MEQ/L (21.0-32.0); BLOOD UREA NITROGEN 17 MG/DL (7-18); CALCIUM 8.5 MG/DL (8.5-10.1); CHLORIDE 107 MEQ/L (98-107); CREATININE 1.12 MG/DL (0.60-1.30); GLOMERULAR FILTRATION RATE 64 ML/MIN (>89); GLUCOSE,RANDOM 76 MG/DL (74-106); SODIUM (NA) 140 MEQ/L (136-145); TOTAL BILIRUBIN ADULT 0.9 MG/DL (0.2-1.0); TOTAL PROTEIN 6.1 GM/DL (6.4-8.2)
--- NOTE | 2017-09-27 10:27 | HHI.FPPN ---
Subjective Remarks No acute events overnight. Pt doing well this AM. Lying in bed, watching TV. He complains of indigestion. Otherwise, he denies CP, SOB, abdominal pain. (Melody Og MD R1) Objective Vitals Vital Signs Date Time Temp Pulse Resp B/P (MAP) Pulse Ox O2 Delivery O2 Flow Rate FiO2 09/27/17 08:00 106 09/27/17 08:00 Room Air 09/27/17 04:00 97.9 81 21 121/84 (96) 94 09/27/17 00:00 97.8 72 18 125/72 (89) 95 09/27/17 00:00 Room Air 09/26/17 20:00 97.8 82 20 144/96 (112) 98 09/26/17 20:00 Room Air 09/26/17 17:15 98.0 101 18 126/68 (87) 99 09/26/17 15:44 93 16 147/97 (114) 98 Room Air 09/26/17 12:51 91 16 95 Room Air 09/26/17 12:21 93 17 143/98 (113) 95 Room Air 09/26/17 11:49 154/104 (121) 09/26/17 11:49 95 Room Air 09/26/17 11:20 98.6 152 20 180/105 (130) 96 Room Air I/O 09/26/17 09/26/17 09/26/17 09/27/17 09/27/17 09/27/17 07:00 15:00 23:00 07:00 15:00 23:00 Output Total 900 ml Balance -900 ml Output Urine Total 900 ml # Voids 3 3 # Bowel Movements 0 (Melody Og MD R1) Result Diagram: 09/26/17 1200 09/27/17 0640 Objective Remarks GENERAL: pleasant, well-nourished elderly M, lying in bed, in NAD SKIN: No rashes, ecchymoses or lesions. Cool and dry.. NECK: Trachea midline. No JVD or lymphadenopathy. Supple, nontender, no meningeal signs. CARDIOVASCULAR: Irregular rate and rhythm, no m/r/g RESPIRATORY: Slight decreased breath sound on right base GASTROINTESTINAL: Abdomen soft, non-tender, nondistended. No hepato-splenomegaly , or palpable masses. No guarding. MUSCULOSKELETAL: 2+ pitting edema : moderately swollen right testicle,erythematous, no inguinal lymph nodes palpated NEUROLOGICAL: Awake, alert, oriented x3 (Melody Og MD R1) A/P Assessment and Plan 76 yr old with Afib, DM, HTN, and hx of prostate cancer, admitted for afib w/ RVR and right-sided hydrocele. Discharge Planning F/U with urology outpatient Awaiting Echo Plan to discharge home (Melody Og MD R1) Attending Attestation Patient examined and case discussed with resident physicians. I have read the above note and agree with the assessment/plan as discussed with me. I was involved in all medical decision making for this patient. Otto Peterson MD (Otto Peterson MD) Problem List: (1) Atrial fibrillation with RVR ICD Codes: I48.91 - Unspecified atrial fibrillation Status: Acute Plan: Patient diagnosed with Afib 1 year ago on Xarelto and Diltiazem Currently rate-controlled with diltiazem 60mg PO quid Continue Lovenox 90mg SQ q12hr Echo 2D w/ doppler pending Will consider lasix for lower extremity swelling and pleural effusion if patient clinically worsens Workup: EKG revealed Afib with RVR, HR 124 Troponin x3, less than 0.02 TSH wnl BNP 229 CXR demonstrated abnormal opacity in the right lung base with blunting of the costophrenic angle most consistent with a moderate effusion. There is a hzy opacity at the right lung base which may be compressive or could represent pneumonia. (2) Hydrocele ICD Codes: N43.3 - Hydrocele, unspecified Status: Acute Plan: Hx of prostate cancer, resection in 1992, no hx of radiation of chemotherapy Patient will follow up outpatient with urology Scrotum US demonstrates moderate right hydrocele CT abd/ pelv w/ IV contrast demonstrated right effusion and small left effusion. Minimal ascites. Mild anasarca. Postoperative prostatectomy with numerous surgical clips in the pelvis. GC and chlamydia PCR negative (3) HTN (hypertension) ICD Codes: I10 - Essential (primary) hypertension Plan: Diltiazem 60mg PO QID Losartan 100mg PO daily clonidine 0.1mg PO q8h PRN SBP >180, DBP >110 (4) Elevated alkaline phosphatase level ICD Codes: R74.8 - Abnormal levels of other serum enzymes Plan: Alk phos and T. bilirubin levels improving Lipase 221 (5) Diabetes ICD Codes: E11.9 - Type 2 diabetes mellitus without complications Plan: Held home meds Alc 7.2% Low dose Novolog SS (6) Nutrition, metabolism, and development symptoms ICD Codes: R63.8 - Other symptoms and signs concerning food and fluid intake Plan: Diet: Heart Healthy Fluids: not indicated at this time Electrolytes: monitor and replace as needed vitals q4h, monitor I &Os, on telemetry (Melody Og MD R1) Problem Qualifiers (1) Hydrocele: Qualified Codes: N43.2 - Other hydrocele Melody Og MD R1 Sep 27, 2017 10:27 Otto Petreson MD Sep 27, 2017 16:21
[2017-09-27] MEDS: PANTOPRAZOLE SOD 40 MG DELAYED RELEASE TAB PO SCH (12:08)
[2017-09-27] MEDS ORDERED: DILT60TA33 PO (16:32)
--- NOTE | 2017-09-27 16:40 | HHI.DCPOC ---
Discharge Care Plan Diagnosis: (1) Atrial fibrillation with RVR (2) Hydrocele Goals to Promote Your Health * To prevent worsening of your condition and complications * To maintain your health at the optimal level Directions to Meet Your Goals Take your medications as prescribed Follow your dietary instruction Follow activity as directed Keep your appointments as scheduled Take your immunizations and boosters as scheduled If your symptoms worsen call your PCP, if no PCP go to Urgent Care Center or Emergency Room Smoking is Dangerous to Your Health. Avoid second hand smoke Call the 24-hour hour crisis hotline for domestic abuse at Simon Chaidez MD R2 Sep 27, 2017 16:40
--- NOTE | 2017-09-27 17:09 | ECHRPT ---
Indication: ATRIAL FIB/FLUTTER CONCLUSIONS Normal left ventricular size. Wall thickness is normal. The left ventricular systolic function is hyperdynamic with an estimated ejection fraction in the ra nge of 65- 70%. The left atrial size is gzxkylgc-kx-ybqsniej dilated. The right atrial size is moderately dilated. Moderate mitral annular calcification. Vtul-am-jzkgrznh mitral valve regurgitation. Aortic valve sclerosis is present. There is mild to moderate tricuspid valve regurgitation. The estimated pulmonary arterial pressure is 60 mmHg. There is less than 50% respiratory change in dimension of the inferior vena cava (abnormal). A right sided pleural effusion is present. BP: 121 / 84 HR: 81 Rhythm: Atrial fibrillation MEASUREMENTS (Male / Female) Normal Values Technical Quality:Fair 2D ECHO LV Diastolic Diameter PLAX 4.6 cm 4.2 - 5.9 / 3.9 - 5.3 cm LV Systolic Diameter PLAX 2.9 cm IVS Diastolic Thickness 0.6 cm 0.6 - 1.0 / 0.6 - 0.9 cm LVPW Diastolic Thickness 0.6 cm 0.6 - 1.0 / 0.6 - 0.9 cm LV Relative Wall Thickness 0.2 RV Internal Dim ED PLAX 4.0 cm LA Systolic Diameter LX 4.4 cm 3.0 - 4.0 / 2.7 - 3.8 cm M-MODE AV Cusp Separation MM 1.7 cm DOPPLER AV Peak Velocity 246.7 cm/s AV Peak Gradient 24.3 mmHg AV Mean Gradient 15.7 mmHg AV Velocity Time Integral 55.7 cm LVOT Peak Velocity 44.2 cm/s LVOT Peak Gradient 0.8 mmHg LVOT Velocity Time Integral 7.5 cm Mitral E Point Velocity 166.5 cm/s LV E' Lateral Velocity 11.7 cm/s Mitral E to LV E' Lateral Ratio 14.3 LV E' Septal Velocity 7.9 cm/s Mitral E to LV E' Septal Ratio 21.0 TR Peak Velocity 353.0 cm/s TR Peak Gradient 49.8 mmHg Right Atrial Pressure 10.0 mmHg Pulmonary Artery Systolic Pressu 59.8 mmHg Right Ventricular Systolic Press 59.8 mmHg PV Peak Velocity 53.0 cm/s PV Peak Gradient 1.1 mmHg FINDINGS LEFT VENTRICLE Normal left ventricular size. Wall thickness is normal. The left ventricular systolic function is hyperdynamic with an estimated ejection fraction in the ra nge of 65- 70%. RIGHT VENTRICLE Normal right ventricular size and systolic function. LEFT ATRIUM The left atrial size is gowdlkoe-np-dneqqozi dilated. RIGHT ATRIUM The right atrial size is moderately dilated. ATRIAL SEPTUM Normal atrial septal thickness without atrial level shunting by limited color doppler interrogation. AORTA The aortic root and proximal ascending aorta are normal in size on limited imaging. MITRAL VALVE Moderate mitral annular calcification. Fbcl-gz-vuzwywgi mitral valve regurgitation. AORTIC VALVE Aortic valve sclerosis is present. TRICUSPID VALVE There is mild to moderate tricuspid valve regurgitation. The estimated pulmonary arterial pressure is 60 mmHg. PULMONARY VALVE No pulmonary valve regurgitation or stenosis. VESSELS The inferior vena cava is normal in size. There is less than 50% respiratory change in dimension of the inferior vena cava (abnormal). PERICARDIUM A right sided pleural effusion is present. No pericardial effusion. Manuel Morris MD (Electronically Signed) Final Date:27 September 2017 17:07
[2017-09-27] MEDS: ATORVASTATIN 40 MG TAB PO SCH (20:48)
[2017-09-28] VITALS (10 sets, daily range): BP systolic 127–151; BP diastolic 73–98; PULSE 76–102; RESP 17–21; TEMP 97.3–98.4; O2SAT 93–95
--- NOTE | 2017-09-28 00:35 | EKG ---
Date Performed: 09/27/2017 Time Performed: 02:38:44 PTAGE: 76 years EKG: Atrial fibrillation Prolonged QT interval Septal T wave changes are nonspecific Abnormal EC G PREVIOUS TRACING : 09/26/2017 19.17 Compared to prior tracing, QT now mildly prolonged DOCTOR: Easton Crump Interpretating Date/Time 09/28/2017 00:34:44
--- NOTE | 2017-09-28 00:49 | EKG ---
Date Performed: 09/26/2017 Time Performed: 19:17:53 PTAGE: 76 years EKG: ATRIAL FIBRILLATION ABNORMAL RHYTHM ECG PREVIOUS TRACING : 09/26/2017 11.44 Compared to prior tracing, rate decreased DOCTOR: Easton Crump Interpretating Date/Time 09/28/2017 00:47:47
--- NOTE | 2017-09-28 01:20 | EKG ---
Date Performed: 09/26/2017 Time Performed: 11:44:47 PTAGE: 76 years EKG: ATRIAL FIBRILLATION WITH RAPID VENTRICULAR RESPONSE NONSPECIFIC ST & T-WAVE ABNORMALITY ABN ORMAL RHYTHM ECG NO PREVIOUS TRACING DOCTOR: Easton Crump Interpretating Date/Time 09/28/2017 01:18:00
[2017-09-28] MEDS: INSULIN ASPART SUPPLEMENTAL SCALE SQ SCH ×4 (08:00→21:46)
[2017-09-28] MEDS: DILTIAZEM HCL 60 MG TAB PO SCH ×2 (09:16→13:21)
[2017-09-28] MEDS: SODIUM CHLORIDE 0.9% FLUSH 10 ML FLUSH IV FLUSH SCH ×2 (09:16→21:44)
[2017-09-28] MEDS: CARBOXYMETHYLCELL SOD 0.5% OPTH SOLN 15 ML BTL EACH EYE SCH ×4 (09:16→21:00)
[2017-09-28] MEDS: LOSARTAN 50 MG TAB PO SCH (09:16)
[2017-09-28] MEDS: PANTOPRAZOLE SOD 40 MG DELAYED RELEASE TAB PO SCH (09:17)
[2017-09-28] MEDS: ENOXAPARIN SODIUM 100 MG/ML SYRINGE SQ SCH (09:17)
[2017-09-28] MEDS: DOCUSATE SODIUM 50 MG/SENNA 8.6 MG TAB PO SCH ×2 (09:17→23:46)
--- NOTE | 2017-09-28 10:33 | HHI.FPPN ---
Subjective Remarks Patient seen and examined this morning by medical team. No acute events reported overnight. Vital signs remained within normal limits with heart rate controlled. Patient states that he is ready for discharge and currently has no complaints. We discussed his echocardiogram report including his elevated pulmonary artery pressure and mitral valve regurgitation. Questions answered and patient voiced verbal understanding. As he has no complaints and denies any new fevers, chills, shortness of breath, chest pain, NVD, vomiting, or calf tenderness. (Simon Chaidez MD R2) Objective Vitals Vital Signs Date Time Temp Pulse Resp B/P (MAP) Pulse Ox O2 Delivery O2 Flow Rate FiO2 09/28/17 08:09 97.3 96 18 144/98 (113) 93 09/28/17 08:00 102 09/28/17 07:15 93 Room Air 09/28/17 04:00 97.4 77 19 139/84 (102) 95 09/28/17 04:00 90 09/28/17 00:00 83 09/28/17 00:00 97.9 76 21 127/79 (95) 94 09/27/17 21:00 Room Air 09/27/17 20:56 95 09/27/17 20:00 98.2 73 19 139/92 (108) 97 09/27/17 16:09 98.4 97 16 136/88 (104) 96 09/27/17 12:09 99.7 97 16 135/95 (108) 95 09/27/17 12:00 85 I/O 09/27/17 09/27/17 09/27/17 09/28/17 09/28/17 09/28/17 07:00 15:00 23:00 07:00 15:00 23:00 Intake Total 520 ml 400 ml Output Total 850 ml Balance 520 ml -450 ml Intake Oral 520 ml 400 ml Output Urine Total 850 ml # Voids 3 5 # Bowel Movements 0 3 0 (Simon Chaidez MD R2) Result Diagram: 09/26/17 1200 09/27/17 0640 Objective Remarks GENERAL: Well-nourished, well-developed Male sitting on side of the bed eating breakfast in no acute distress. SKIN: Warm and dry. No rash. HEENT: Atraumatic, normocephalic with extraocular motions intact. No rhinorrhea. No visible lymphadenopathy or jugulovenous distension appreciated. CARDIOVASCULAR: Irregular rate and irregular rhythm with 2/6 systolic ejection murmur at the apex radiating toward axilla. RESPIRATORY: Decreased breath sounds on the right lower lobe, otherwise clear to auscultation bilaterally. No increased work of breathing. No crackles, wheezes, or rhonchi. GASTROINTESTINAL: Abdomen soft, non-tender, nondistended with positive bowel sounds. No masses appreciated. MUSCULOSKELETAL: No cyanosis or edema. No calf tenderness. : Moderately swollen right testicle with mild improvement, erythematous, no inguinal lymph nodes palpated. NEURO/PSYCH: Afocal. Awake, alert, and oriented x3. Normal speech and judgement. (Simon Chaidez MD R2) A/P Assessment and Plan 76 yr old with Afib, DM, HTN, and hx of prostate cancer, admitted for afib w/ RVR and right-sided hydrocele. Discharge Planning Pending cardiology evaluation F/U with urology outpatient (Simon Chaidez MD R2) Attending Attestation Pt. examined and case discussed with resident physicians. I have read the above note and agree with the assessment and plan as discussed with me. I was involved in all medical decision making for this patient. Otto Peterson MD (Otto Peterson MD) Problem List: (1) Mitral regurgitation ICD Codes: I34.0 - Nonrheumatic mitral (valve) insufficiency Status: Chronic Plan: Patient with nocturnal regurgitation and pulmonary artery hypertension on echocardiogram. Patient denies history of rheumatic disease. Patient does endorse history of murmur. -Exam: 2/6 systolic ejection murmur consistent with mitral regurgitation appreciated on today's exam, prior exams difficult due to tachycardia with rapid ventricular response. Patient with lower extremity edema (not appreciated on today's exam) and hydrocele possibly related to vascular congestion secondary to A. fib with RVR and -Echocardiogram: Normal left ventricular size and thickness with estimated ejection fraction of 65-70%. Left atrial size moderate to severely dilated with mild to moderate mitral valve regurgitation. Pulmonary arterial pressure is 60 mmHg with less than 50% respiratory change in dimension of the inferior vena cava (abnormal). Aortic valve sclerosis present. Right-sided pleural effusion present. -Cardiology consulted, appreciate recommendations (2) Atrial fibrillation with RVR ICD Codes: I48.91 - Unspecified atrial fibrillation Status: Acute Plan: Patient diagnosed with Afib 1 year ago on Xarelto and Diltiazem Currently rate-controlled with diltiazem 60mg PO quid Continue Lovenox 90mg SQ q12hr, transition to Xarelto at DC Echo 2D w/ doppler as above Will consider lasix for lower extremity swelling and pleural effusion if patient clinically worsens Workup: EKG revealed Afib with RVR, HR 124 Troponin x3, less than 0.02 TSH wnl BNP 229 CXR demonstrated abnormal opacity in the right lung base with blunting of the costophrenic angle most consistent with a moderate effusion. There is a hzy opacity at the right lung base which may be compressive or could represent pneumonia. (3) Hydrocele ICD Codes: N43.3 - Hydrocele, unspecified Status: Acute Plan: Hx of prostate cancer, resection in 1992, no hx of radiation of chemotherapy Patient will follow up outpatient with urology Scrotum US demonstrates moderate right hydrocele CT abd/ pelv w/ IV contrast demonstrated right effusion and small left effusion. Minimal ascites. Mild anasarca. Postoperative prostatectomy with numerous surgical clips in the pelvis. GC and chlamydia PCR negative (4) HTN (hypertension) ICD Codes: I10 - Essential (primary) hypertension Status: Chronic Plan: BP intermittently elevated to 140s systolic Diltiazem 60mg PO QID Losartan 100mg PO daily clonidine 0.1mg PO q8h PRN SBP >180, DBP >110 (5) Elevated alkaline phosphatase level ICD Codes: R74.8 - Abnormal levels of other serum enzymes Status: Acute Plan: Alk phos and T. bilirubin levels improving Lipase 221 (6) Diabetes ICD Codes: E11.9 - Type 2 diabetes mellitus without complications Status: Chronic Plan: Held home meds Alc 7.2% Low dose Novolog SS (7) Nutrition, metabolism, and development symptoms ICD Codes: R63.8 - Other symptoms and signs concerning food and fluid intake Plan: Diet: Heart Healthy Fluids: not indicated at this time Electrolytes: monitor and replace as needed vitals q4h, monitor I &Os, on telemetry (Simon Chaidez MD R2) Problem Qualifiers (1) Mitral regurgitation: Qualified Codes: I34.0 - Nonrheumatic mitral (valve) insufficiency (2) Hydrocele: Qualified Codes: N43.2 - Other hydrocele (3) Diabetes: Qualified Codes: E11.8 - Type 2 diabetes mellitus with unspecified complications Simon Chaidez MD R2 Sep 28, 2017 10:33 Otto Peterson MD Sep 28, 2017 20:58
--- NOTE | 2017-09-28 15:26 | MB ---
cc: JENISE RANGEL M.D. DATE OF CONSULTATION 09/28/2017 REASON FOR CONSULTATION Atrial fibrillation, chest pain, shortness of breath. HISTORY OF PRESENT ILLNESS The patient is a very pleasant 76-year-old white male, followed at the [facility], with a history of chronic atrial fibrillation dating back to at least last summer, diabetes, hypertension, hyperlipidemia, gastroesophageal reflux disease, who was in his usual state of health up until 2 days ago when while exercising, walking up hill, he developed fairly severe shortness of breath, substernal chest tightness, rapid irregular palpitations without associated dizziness, near-syncope or syncope. The patient stopped walking and the symptoms for the most part resolved after about 5 minutes, although he had recurrent chest discomfort lasting a couple of minutes a short time later. The patient exercises regularly, and he cannot recall any other episodes of chest tightness. He denies pleurisy, pedal edema, paroxysmal nocturnal dyspnea, fevers, cough. Since coming into the hospital he has had no further cardiovascular symptoms. PAST MEDICAL HISTORY 1. Chronic atrial fibrillation which was diagnosed approximately February 2017. 2. Hyperlipidemia. 3. Diabetes. 4. Hypertension. 5. Gastroesophageal reflux disease. 6. Right hydrocele. MEDICATIONS His cardiac medications at home: 1. Diltiazem 30 mg q.i.d. 2. Xarelto 20 mg q. day. 3. Losartan 100 mg q. day. 4. Atorvastatin 40 mg q.h.s. ALLERGIES No known drug allergies. FAMILY HISTORY There is no significant family history of early myocardial infarction or sudden cardiac . SOCIAL HISTORY The patient quit smoking 35 years ago. He denies alcohol abuse. REVIEW OF SYSTEMS As in the history of present illness otherwise negative or noncontributory. He also denies headache, visual changes, unilateral weakness or numbness, abdominal pain, melena, bright red blood per rectum. Occasionally he does experience dyspepsia. PHYSICAL EXAMINATION VITAL SIGNS: On physical examination his blood pressure is 144/98 with a pulse of 96, respirations 18. GENERAL: In general he is a well-developed, well-nourished white male in no acute distress. HEENT/NECK: Jugular venous pressure is normal. Carotid pulses are 2+ bilaterally and without bruits. CHEST: Examination of the chest reveals diminished breath sounds at the bases, right greater than left. CARDIAC: On cardiac examination he has an irregularly irregular rhythm with a grade 2/6 holosystolic murmur heard at the apex. No gallop is audible. ABDOMEN: On abdominal examination he has a soft, nontender abdomen. Bowel sounds are present. There is no definite hepatosplenomegaly. EXTREMITIES: Examination of the extremities reveals no clubbing or cyanosis. There is trace pretibial edema bilaterally. IMAGING Chest x-ray shows right pleural effusion, moderate in size, hazy opacity of the right lung base suggestive of pneumonia. EKG EKG shows atrial fibrillation with rapid ventricular response, nonspecific T-wave abnormality. LABORATORY Laboratory data includes normal CBC, potassium 3.9, BUN 17, creatinine 1.12, negative cardiac enzymes. IMPRESSION Elevated heart rates, chest pain, possible pneumonia in this 76-year-old white male with a history of chronic atrial fibrillation, hyperlipidemia, diabetes, hypertension, gastroesophageal reflux disease. At this time his heart rates appear to be under better control (80s to 90s). Overall there is no definite evidence for acute coronary syndrome. He has been exercising regularly in the last few months without chest discomforts. On the other hand he does have a number of risk factors for coronary artery disease including hyperlipidemia, diabetes, hypertension. No acute ST-segment changes are seen on EKG. Overall there is no definite evidence for congestive heart failure. His ejection fraction by echo is greater than 65% with reportedly mild to moderate mitral regurgitation. RECOMMENDATIONS 1. Check a nuclear stress test to rule out myocardial ischemia in light of his chest pains and coronary artery disease risk factors. Should ischemia be demonstrated, consider medical therapy. 2. Continue his Xarelto 20 mg daily. 3. Would change his diltiazem to long-acting form and add a beta melina, metoprolol 50 mg p.o. b.i.d. MD VIRI Moss/BRI /2:47 PM /3:03 PM MTDD
[2017-09-28] MEDS ORDERED: LEVOFLOXACIN 500 MG TAB PO SCH (21:00)
[2017-09-28] MEDS: ATORVASTATIN 40 MG TAB PO SCH (23:46)
[2017-09-28] MEDS: DILTIAZEM-CD 240 MG CAP ER PO SCH (23:46)
[2017-09-28] MEDS: RIVAROXABAN 20 MG TAB PO SCH (23:47)
[2017-09-28] MEDS: METOPROLOL TARTRATE 50 MG TAB PO SCH (23:47)
[2017-09-29 03:50] VITALS: BP 110/63; PULSE 62; RESP 18; TEMP 98.3; O2SAT 92
--- NOTE | 2017-09-29 07:28 | PD.CARD.PN ---
Subjective Subjective Remarks Feels good. Denies any further CP, dyspnea. No dizziness, palpitations. Objective Medications Item Value Date Time Metoprolol 50 mg 09/28/172099 Tartrate BID/PO 09/28/172346 (Lopressor) Rivaroxaban 20 mg 09/28/172099 (Xarelto) DAILY/PO 09/28/172346 Diltiazem HCl 240 mg 09/28/172099 (Cardizem Cd) DAILY/PO 09/28/172345 Atorvastatin 40 mg 09/26/172099 Calcium HS/PO 09/28/17 234 (Lipitor) Losartan Potassium 100 mg 09/26/17 1530 (Cozaar) DAILY/PO 09/28/17 0916 Current Medications Medications (Trade) Dose Ordered Sig/Levon Route Start Time Stop Time Status Last Admin (NS Flush) 2 ml UNSCH PRN IVF 09/26/17 11:45 (Lipitor) 40 mg HS PO 09/26/17 21:00 09/28/17 23:46 (Refresh Tears 0.5% Opth Soln) 1 drop QID EACH EYE 09/26/17 18:00 09/28/17 17:42 (Cozaar) 100 mg DAILY PO 09/26/17 15:30 09/28/17 09:16 (NS Flush) 2 ml UNSCH PRN IV FLUSH 09/26/17 15:45 (NS Flush) 2 ml BID IV FLUSH 09/26/17 21:00 09/28/17 21:44 (Tylenol) 650 mg Q4H PRN PO 09/26/17 15:45 (Zofran Inj) 4 mg Q6H PRN IVP 09/26/17 15:45 (Narcan Inj) 0.4 mg UNSCH PRN IV PUSH 09/26/17 15:45 (Kelly-Colace) 1 tab BID PO 09/26/17 21:00 09/28/17 23:46 (D50w (Vial) Inj) 50 ml UNSCH PRN IV PUSH 09/26/17 15:45 (Glucagon Inj) 1 mg UNSCH PRN OTHER 09/26/17 15:45 (NovoLOG SUPPLEMENTAL SCALE) 1 ACHS SLIDING SCALE SQ 09/26/17 17:00 09/28/17 21:46 (Catapres) 0.1 mg Q8HR PRN PO 09/26/17 16:00 (Protonix) 40 mg DAILY PO 09/27/17 12:00 09/28/17 09:17 (Lopressor) 50 mg BID PO 09/28/17 21:00 09/28/17 23:47 (Xarelto) 20 mg DAILY PO 09/28/17 21:00 09/28/17 23:47 (Cardizem Cd) 240 mg DAILY PO 09/28/17 21:00 09/28/17 23:46 (Levaquin) 500 mg DAILY PO 09/28/17 21:00 UNV Vital Signs / I&O Vital Signs Date Time Temp Pulse Resp B/P (MAP) Pulse Ox O2 Delivery O2 Flow Rate FiO2 09/29/17 03:50 98.3 62 18 110/63 (79) 92 09/28/17 23:32 98.4 85 17 135/85 (102) 94 09/28/17 20:00 83 09/28/17 20:00 97.6 80 18 131/73 (92) 94 09/28/17 19:00 94 Room Air 09/28/17 16:09 98.0 94 18 151/91 (111) 95 09/28/17 16:00 94 09/28/17 12:05 97.3 96 18 144/98 (113) 93 09/28/17 12:00 97 09/28/17 08:09 97.3 96 18 144/98 (113) 93 09/28/17 08:00 102 I/O 09/28/17 09/28/17 09/28/17 09/29/17 09/29/17 09/29/17 07:00 15:00 23:00 07:00 15:00 23:00 Intake Total 400 ml 840 ml 360 ml Output Total 850 ml 125 ml Balance -450 ml 840 ml 235 ml Intake Oral 400 ml 840 ml 360 ml Output Urine Total 850 ml 125 ml # Voids 3 2 # Bowel Movements 0 1 0 Physical Exam GENERAL: Well developed, well nourished. No acute distress. HEENT: Jugular venous pressure is normal. CHEST: Lungs clear to auscultation bilaterally. Unlabored respiratory effort. CARDIAC: Irregular rate and rhythm without S3, S4. II/ holosystolic murmur apex. ABDOMEN: Soft, nontender, no hepatosplenomegaly. Bowel sounds present. EXTREMITIES: No clubbing, cyanosis. Trace pretibial edema. Assessment and Plan Problem List: (1) Chronic atrial fibrillation ICD Codes: I48.2 - Chronic atrial fibrillation Status: Chronic Plan: Stable overnight. HR's acceptable on oral Cardizem, metoprolol. Rec continue same, continue Xarelto. OK to discharge today from cardiac standpoint if no major ischemia shown on nuclear stress testing. (2) Chest pain ICD Codes: R07.9 - Chest pain, unspecified Status: Acute Plan: No further atypical CP. For nuclear stress test today. OK to discharge today from cardiac standpoint if no major ischemia shown on nuclear stress testing. (3) Hypertension ICD Codes: I10 - Essential (primary) hypertension Status: Chronic Plan: Stable. Mostly normotensive. Code Status full code Discussed Condition With patient Problem Qualifiers (1) Chest pain: Qualified Codes: R07.9 - Chest pain, unspecified (2) Hypertension: Qualified Codes: I10 - Essential (primary) hypertension Bhaskar James MD Sep 29, 2017 07:28
[2017-09-29 08:00] VITALS: BP 129/83; PULSE 52; PULSE 58; RESP 18; TEMP 97.3; O2SAT 94
[2017-09-29] MEDS: INSULIN ASPART SUPPLEMENTAL SCALE SQ SCH ×2 (08:00→14:34)
--- NOTE | 2017-09-29 08:45 | HHI.FPPN ---
Subjective Remarks No acute events overnight. Patient had 1 episode of unsustained asymptomatic bradycardia to 40s per nurse. Pt sitting up in chair this AM. He complains that new cardio medications that were started yesterday is upsetting his stomach. He was having right-sided abdominal pain, better when sitting up. Last BM was this AM. He also reports that his stream remains slow. He denies urinary retention, dysuria, hematuria, CP, SOB, diarrhea, and N/V. (Melody Og MD R1) Objective Vitals Vital Signs Date Time Temp Pulse Resp B/P (MAP) Pulse Ox O2 Delivery O2 Flow Rate FiO2 09/29/17 03:50 98.3 62 18 110/63 (79) 92 09/28/17 23:32 98.4 85 17 135/85 (102) 94 09/28/17 20:00 83 09/28/17 20:00 97.6 80 18 131/73 (92) 94 09/28/17 19:00 94 Room Air 09/28/17 16:09 98.0 94 18 151/91 (111) 95 09/28/17 16:00 94 09/28/17 12:05 97.3 96 18 144/98 (113) 93 09/28/17 12:00 97 I/O 09/28/17 09/28/17 09/28/17 09/29/17 09/29/17 09/29/17 07:00 15:00 23:00 07:00 15:00 23:00 Intake Total 400 ml 840 ml 360 ml Output Total 850 ml 125 ml Balance -450 ml 840 ml 235 ml Intake Oral 400 ml 840 ml 360 ml Output Urine Total 850 ml 125 ml # Voids 3 2 # Bowel Movements 0 1 0 (Melody Og MD R1) Result Diagram: 09/26/17 1200 09/27/17 0640 Objective Remarks GENERAL: sitting up in chair, in NAD SKIN: Warm and dry. No rash. HEENT: Atraumatic, normocephalic with extraocular motions intact. No rhinorrhea. No visible lymphadenopathy or jugulovenous distension appreciated. CARDIOVASCULAR: Irregular rate and irregular rhythm with 2/6 systolic ejection murmur at the apex radiating toward axilla. RESPIRATORY: Decreased breath sounds on the right lower lobe, otherwise clear to auscultation bilaterally. No increased work of breathing. No crackles, wheezes, or rhonchi. GASTROINTESTINAL: Abdomen soft, non-tender, nondistended with positive bowel sounds. No masses appreciated. MUSCULOSKELETAL: No cyanosis or edema. No calf tenderness. : moderately swollen right testicle with mild improvement, erythematous, no inguinal lymph nodes palpated. NEURO/PSYCH: Afocal. Awake, alert, and oriented x3. Normal speech and judgement. (Melody Og MD R1) A/P Assessment and Plan 76 yr old with Afib, DM, HTN, and hx of prostate cancer, admitted for afib w/ RVR and right-sided hydrocele. Discharge Planning Pending Nuclear stress test results F/U with urology outpatient (Melody Og MD R1) Attending Attestation Pt. examined and case discussed with resident physicians I have read the above note and agree with the assessment/plan as discussed with me I was involved in all medical decision making for this patient Otto Peterson MD (Otto Peterson MD) Problem List: (1) Mitral regurgitation ICD Codes: I34.0 - Nonrheumatic mitral (valve) insufficiency Status: Chronic Plan: -Cardiology consulted, recommendations appreciated -HR controlled on oral Cardizem 240mg PO daily and metoprolol 50mg PO BID -Continue Xarelto 20 mg PO daily -Nuclear stress test today, ok to discharge from cardiac standpoint if no major ischemia Hospital course: Patient with nocturnal regurgitation and pulmonary artery hypertension on echocardiogram. Patient denies history of rheumatic disease. Patient does endorse history of murmur. -Exam: 2/6 systolic ejection murmur consistent with mitral regurgitation appreciated on today's exam, prior exams difficult due to tachycardia with rapid ventricular response. Patient with lower extremity edema and hydrocele possibly related to vascular congestion secondary to A. fib with RVR and -Echocardiogram: Normal left ventricular size and thickness with estimated ejection fraction of 65-70%. Left atrial size moderate to severely dilated with mild to moderate mitral valve regurgitation. Pulmonary arterial pressure is 60 mmHg with less than 50% respiratory change in dimension of the inferior vena cava (abnormal). Aortic valve sclerosis present. Right-sided pleural effusion present. (2) Atrial fibrillation with RVR ICD Codes: I48.91 - Unspecified atrial fibrillation Status: Acute Plan: Plan as above. Workup: Patient diagnosed with Afib 1 year ago on Xarelto and Diltiazem EKG revealed Afib with RVR, HR 124 Troponin x3, less than 0.02 TSH wnl BNP 229 CXR demonstrated abnormal opacity in the right lung base with blunting of the costophrenic angle most consistent with a moderate effusion. There is a hzy opacity at the right lung base which may be compressive or could represent pneumonia. (3) Hydrocele ICD Codes: N43.3 - Hydrocele, unspecified Status: Acute Plan: Patient will follow up outpatient with urology Work up: Hx of prostate cancer, resection in 1992, no hx of radiation of chemotherapy Scrotum US demonstrates moderate right hydrocele CT abd/ pelv w/ IV contrast demonstrated right effusion and small left effusion. Minimal ascites. Mild anasarca. Postoperative prostatectomy with numerous surgical clips in the pelvis. GC and chlamydia PCR negative (4) Urinary stream slowing ICD Codes: R39.198 - Other difficulties with micturition Plan: Will perform Bladder scan after voiding to look for residual urine Straight cath if needed, otherwise, follow-up outpatient with urology (5) CAP (community acquired pneumonia) ICD Codes: J18.9 - Pneumonia, unspecified organism Plan: Right-sided opacity seen on CXR Levaquin 500 mg PO daily for 5 days (6) HTN (hypertension) ICD Codes: I10 - Essential (primary) hypertension Status: Chronic Plan: BP stable Continue: Diltiazem 240mg PO daiy, Losartan 100mg PO daily, Metoprolol 50mg PO bid clonidine 0.1mg PO q8h PRN SBP >180, DBP >110 (7) Diabetes ICD Codes: E11.9 - Type 2 diabetes mellitus without complications Status: Chronic Plan: Held home meds Low dose Novolog SS while inpatient Alc 7.2% (8) Nutrition, metabolism, and development symptoms ICD Codes: R63.8 - Other symptoms and signs concerning food and fluid intake Plan: Diet:NPO for nuclear stress test this AM Fluids: not indicated at this time Electrolytes: monitor and replace as needed vitals q4h, monitor I &Os, on telemetry (Melody gO MD R1) Problem Qualifiers (1) Mitral regurgitation: Qualified Codes: I34.0 - Nonrheumatic mitral (valve) insufficiency (2) Hydrocele: Qualified Codes: N43.2 - Other hydrocele (3) Diabetes: Qualified Codes: E11.8 - Type 2 diabetes mellitus with unspecified complications Melody Og MD R1 Sep 29, 2017 08:45 Otto Peterson MD Sep 29, 2017 12:17
[2017-09-29] MEDS: SODIUM CHLORIDE 0.9% FLUSH 10 ML FLUSH IV FLUSH SCH (09:11)
[2017-09-29] MEDS: METOPROLOL TARTRATE 50 MG TAB PO SCH (09:12)
[2017-09-29] MEDS: LOSARTAN 50 MG TAB PO SCH (09:12)
[2017-09-29] MEDS: PANTOPRAZOLE SOD 40 MG DELAYED RELEASE TAB PO SCH (09:12)
[2017-09-29] MEDS: DOCUSATE SODIUM 50 MG/SENNA 8.6 MG TAB PO SCH (09:12)
[2017-09-29] MEDS: RIVAROXABAN 20 MG TAB PO SCH (09:12)
[2017-09-29] MEDS: DILTIAZEM-CD 240 MG CAP ER PO SCH (09:12)
[2017-09-29] MEDS: CARBOXYMETHYLCELL SOD 0.5% OPTH SOLN 15 ML BTL EACH EYE SCH ×2 (09:17→13:29)
[2017-09-29] MEDS ORDERED: DILT240C44 PO (10:33)
[2017-09-29] MEDS ORDERED: LEVA500T33 PO (10:33)
--- NOTE | 2017-09-29 10:34 | HHI.DS ---
Discharge Summary Admission Date Sep 26, 2017 at 13:24 Admitting Diagnosis AFib with RVR, CHF, hyperglycemia (1) Mitral regurgitation Plan: -Cardiology consulted, recommendations appreciated -HR controlled on oral Cardizem 240mg PO daily and metoprolol 50mg PO BID -Continue Xarelto 20 mg PO daily -Nuclear stress test today, ok to discharge from cardiac standpoint if no major ischemia Hospital course: Patient with nocturnal regurgitation and pulmonary artery hypertension on echocardiogram. Patient denies history of rheumatic disease. Patient does endorse history of murmur. -Exam: 2/6 systolic ejection murmur consistent with mitral regurgitation appreciated on today's exam, prior exams difficult due to tachycardia with rapid ventricular response. Patient with lower extremity edema and hydrocele possibly related to vascular congestion secondary to A. fib with RVR and -Echocardiogram: Normal left ventricular size and thickness with estimated ejection fraction of 65-70%. Left atrial size moderate to severely dilated with mild to moderate mitral valve regurgitation. Pulmonary arterial pressure is 60 mmHg with less than 50% respiratory change in dimension of the inferior vena cava (abnormal). Aortic valve sclerosis present. Right-sided pleural effusion present. ICD Codes: I34.0 - Nonrheumatic mitral (valve) insufficiency Status: Chronic (2) Atrial fibrillation with RVR Plan: Plan as above. Workup: Patient diagnosed with Afib 1 year ago on Xarelto and Diltiazem EKG revealed Afib with RVR, HR 124 Troponin x3, less than 0.02 TSH wnl BNP 229 CXR demonstrated abnormal opacity in the right lung base with blunting of the costophrenic angle most consistent with a moderate effusion. There is a hzy opacity at the right lung base which may be compressive or could represent pneumonia. ICD Codes: I48.91 - Unspecified atrial fibrillation Status: Acute (3) Hydrocele Plan: Patient will follow up outpatient with urology Work up: Hx of prostate cancer, resection in 1992, no hx of radiation of chemotherapy Scrotum US demonstrates moderate right hydrocele CT abd/ pelv w/ IV contrast demonstrated right effusion and small left effusion. Minimal ascites. Mild anasarca. Postoperative prostatectomy with numerous surgical clips in the pelvis. GC and chlamydia PCR negative ICD Codes: N43.3 - Hydrocele, unspecified Status: Acute (4) Urinary stream slowing Plan: Will perform Bladder scan after voiding to look for residual urine Straight cath if needed, otherwise, follow-up outpatient with urology ICD Codes: R39.198 - Other difficulties with micturition (5) CAP (community acquired pneumonia) Plan: Right-sided opacity seen on CXR Levaquin 500 mg PO daily for 5 days ICD Codes: J18.9 - Pneumonia, unspecified organism (6) HTN (hypertension) Plan: BP stable Continue: Diltiazem 240mg PO daiy, Losartan 100mg PO daily, Metoprolol 50mg PO bid clonidine 0.1mg PO q8h PRN SBP >180, DBP >110 ICD Codes: I10 - Essential (primary) hypertension Status: Chronic (7) Diabetes Plan: Held home meds Low dose Novolog SS while inpatient Alc 7.2% ICD Codes: E11.9 - Type 2 diabetes mellitus without complications Status: Chronic (8) Nutrition, metabolism, and development symptoms Plan: Diet:NPO for nuclear stress test this AM Fluids: not indicated at this time Electrolytes: monitor and replace as needed vitals q4h, monitor I &Os, on telemetry ICD Codes: R63.8 - Other symptoms and signs concerning food and fluid intake Brief History 76 yo M presenting to the ED with chest pain and palpitations. He has a history of A.fib and is on diltiazem for rate control and xarelto - however over the last 10 days, he has had progressive shortness of breath and sensation of his heart racing. This is associated with some chest discomfort and dizziness with minimal exertion. In the ED, he was found to be in A.fib with RVR and was given a dose of diltiazem IV and his chest discomfort and palpitations have resolved. He also complains of right scrotal swelling and testicular discomfort for 2 weeks. He states that the swelling was progressive and spontaneous, denies trauma or injury. Denies hematuria or dysuria. Denies lower abdominal pain. He endorses mild urinary retention and difficulty starting a stream. He does have a h/o prostate cancer s/p prostatectomy without radiation or chemotherapy in 1992 CBC/BMP: 09/26/17 1200 09/27/17 0640 Significant Findings Laboratory Tests Test 09/26/17 12:00 09/26/17 16:00 09/26/17 19:05 09/27/17 00:15 Platelet Count 148 TH/MM3 (150-450) Neutrophils (%) (Auto) 77.9 % (16.0-70.0) Prothrombin Time 13.7 SEC (9.8-11.6) Activated Partial Thromboplast Time 32.6 SEC (24.3-30.1) Random Glucose 237 MG/DL (74-106) Alkaline Phosphatase 179 U/L (45-117) Total Bilirubin 1.1 MG/DL (0.2-1.0) Estimat Glomerular Filtration Rate 59 ML/MIN (>89) Hemoglobin A1c 7.2 % (4.3-6.0) Troponin I LESS THAN 0.02 NG/ML LESS THAN 0.02 NG/ML LESS THAN 0.02 NG/ML B-Type Natriuretic Peptide 229 PG/ML (0-100) Test 09/27/17 06:40 Total Protein 6.1 GM/DL (6.4-8.2) Albumin 3.2 GM/DL (3.4-5.0) Alkaline Phosphatase 152 U/L (45-117) Estimat Glomerular Filtration Rate 64 ML/MIN (>89) PE at Discharge GENERAL: sitting up in chair, in NAD SKIN: Warm and dry. No rash. HEENT: Atraumatic, normocephalic with extraocular motions intact. No rhinorrhea. No visible lymphadenopathy or jugulovenous distension appreciated. CARDIOVASCULAR: Irregular rate and irregular rhythm with 2/6 systolic ejection murmur at the apex radiating toward axilla. RESPIRATORY: Decreased breath sounds on the right lower lobe, otherwise clear to auscultation bilaterally. No increased work of breathing. No crackles, wheezes, or rhonchi. GASTROINTESTINAL: Abdomen soft, non-tender, nondistended with positive bowel sounds. No masses appreciated. MUSCULOSKELETAL: No cyanosis or edema. No calf tenderness. : moderately swollen right testicle with mild improvement, erythematous, no inguinal lymph nodes palpated. NEURO/PSYCH: Afocal. Awake, alert, and oriented x3. Normal speech and judgement. Melody Og MD R1 Sep 29, 2017 10:34
[2017-09-29 10:54] LABS: HEMATOCRIT 44.7 % (39.0-51.0); HEMOGLOBIN 15.2 GM/DL (13.0-17.0); MEAN CORPUSCULAR HEMOGLOBIN 30.2 PG (27.0-34.0); MEAN PLATELET VOLUME 9.1 FL (7.0-11.0); PLATELET COUNT 164 TH/MM3 (150-450); RED BLOOD COUNT 5.02 MIL/MM3 (4.50-5.90); RED CELL DISTRIBUTION WIDTH 14.4 % (11.6-17.2); WHITE BLOOD COUNT 6.9 TH/MM3 (4.0-11.0)
[2017-09-29] MEDS ORDERED: REGADENOSON INJ 0.4 MG/5 ML SYR ONE (11:05)
[2017-09-29 11:19] LABS: BICARBONATE 27.2 MEQ/L (21.0-32.0); CALCIUM 8.8 MG/DL (8.5-10.1); CREATININE 1.51 MG/DL (0.60-1.30)
[2017-09-29 12:00] VITALS: BP 118/79; PULSE 58; RESP 18; TEMP 97.4; O2SAT 96
--- NOTE | 2017-09-29 13:45 | RADRPT ---
EXAM DATE/TIME: 09/29/2017 11:05 [facility] COMPARISON: No previous studies available for comparison. INDICATIONS : Chest pain. Angina. DOSE: 27.4 mCi Tc99m Myoview at stress. 8.3 mCi Tc99m Myoview at rest. 0.4 mg Lexiscan STRESS SYMPTOMS: Shortness of breath. EJECTION FRACTION: > 70% MEDICAL HISTORY : Hypertension. Gastroesophageal reflux disease. Diabetes mellitus type 2. SURGICAL HISTORY : Prostatectomy. ENCOUNTER: Initial ACUITY: 1 day PAIN SCALE: 4/10 LOCATION: Bilateral chest TECHNIQUE: The patient underwent pharmacologic stress with infusion of prescribed dose. Continuous ECG tracing was monitored during stress. Gated SPECT imaging was performed after stress and conventional SPECT i maging was performed at rest. The examination was performed on a SPECT/CT scanner, both attenuation and non-corrected datasets were reviewed. FINDINGS: DISTRIBUTION: The maximum perfused segment at stress is in the anterior lateral wall. PERFUSION STUDY: The pattern of perfusion at stress is within normal limits. There is a summed stress score of zero. GATED STUDY: There is intact wall motion and thickening without hypokinetic or dyskinetic segments. CONCLUSION: 1. Normal wall motion and calculated ejection fraction. 2. No fixed or reversible defects to suggest ischemia or infarction. RISK CATEGORY: Low (<1% Annual Mortality Rate) Timo Munguia MD on September 29, 2017 at 13:40 Board Certified Radiologist. This report was verified electronically.
== END 2017-09-29 16:30 | disposition home or self-care (01) | DRG 308 ==
LOC: NEPC 11:15 → NEDA 13:24 → N04A 16:02
PROVIDERS: ADMIT Family Medicine; ATTEND Family Medicine
DX: I48.2 Chronic atrial fibrillation (principal); Z79.02 Long term (current) use of antithrombotics/antiplatelets; J18.9 Pneumonia, unspecified organism; I34.0 Nonrheumatic mitral (valve) insufficiency; E11.9 Type 2 diabetes mellitus without complications; Z79.84 Long term (current) use of oral hypoglycemic drugs; N43.3 Hydrocele, unspecified; Z85.46 Personal history of malignant neoplasm of prostate; R33.9 Retention of urine, unspecified; I10 Essential (primary) hypertension; R74.8 Abnormal levels of other serum enzymes; E78.5 Hyperlipidemia, unspecified; K21.9 Gastro-esophageal reflux disease without esophagitis; Z87.891 Personal history of nicotine dependence
CPT/HCPCS: 71045; 74177; 76870; 78452; 80048; 80053; 81001; 82550; 82948; 83036; 83690; 83735; 83880; 84443; 84484; 85025; 85027; 85610; 85730; 87491; 87591; 93005; 93017; 93306; 93975; 96374; A9502; J1650; J1815; J1940; J2785; Q9967